=== PATIENT | male | born 1965 | race Caucasian/White ===

== ENCOUNTER 2020-01-07 10:33 | Inpatient (IN) | payer OTHER ==
--- NOTE | 2020-01-07 10:59 | EDM.PDOC ---
ED HPI GENERAL MEDICAL PROBLEM - General Chief Complaint: Fever Stated Complaint: FEVER, CANCER PATIENT Time Seen by Provider: 01/07/20 11:00 Source of Information: Reports: Patient, Family History Limitations: Reports: No Limitations - History of Present Illness INITIAL COMMENTS - FREE TEXT/NARRATIVE: pt has been very lethargic for the past 24 hours. He has had a fever on and off. He was incontinent of urine during the nite which is new for him. He has a known history of agressive prostate CA. He has not had recent UTIs. Onset: Today, Other (pt has been lethhargic for the past 48 hours. ) Duration: Hour(s): Location: Reports: Generalized, Other ( urine incontinence and red inflamed left leg. ) Associated Symptoms: Reports: Diaphoresis, Fever/Chills, Shortness of Breath, Weakness Bilateral Knee Pain Score (Numeric/FACES): 3 - Related Data Allergies Allergy/AdvReac Type Severity Reaction Status Date / Time No Known Allergies Allergy Verified 01/07/20 11:10 Home Meds: Home Meds Ibuprofen 400 mg PO Q6HR 01/07/20 [History] Lactobacillus Rhamnosus GG [Culturelle] 1 cap PO BID #60 cap 01/09/20 [Rx] cephALEXin [Cephalexin] 500 mg PO Q8H #21 tablet 01/09/20 [Rx] ED ROS ENT - Review of Systems Review Of Systems: See Below Constitutional: Reports: Fever, Chills, Malaise HEENT: Reports: No Symptoms Respiratory: Reports: Shortness of Breath, Other (pt feels slightly sob. ) Cardiovascular: Reports: No Symptoms Endocrine: Reports: No Symptoms GI/Abdominal: Reports: No Symptoms : Reports: No Symptoms Musculoskeletal: Reports: No Symptoms Skin: Reports: Other (left leg is very red and hot. ) Neurological: Reports: No Symptoms Psychiatric: Reports: Anxiety ED EXAM, ENT - Physical Exam Exam: See Below Text/Narrative:: pt arrived with a history of being very lethargic for the past 24 hours. He has a history of prostate CA--agressive. He has had a fever. He has a red hot left leg. Exam Limited By: No Limitations General Appearance: Alert, Anxious, Mild Distress Ears: Normal TMs Nose: Normal Inspection Mouth/Throat: Normal Inspection Head: Atraumatic Neck: Normal Inspection Respiratory/Chest: Other (pt has slightly low o2 sats. ) Cardiovascular: Regular Rate, Rhythm GI/Abdominal: Soft, Non-Tender (Male) Exam: Deferred Rectal (Males) Exam: Deferred Back: Normal Inspection Extremities: Other (left leg is red and hot appearing. Alot of the redness in the anterior portion of the leg. ) Neurological: Alert, Oriented, Normal Cognition Psychiatric: Anxious Course - Vital Signs Last Recorded V/S: Last Vital Signs Temp 36.6 C 01/09/20 11:00 Pulse 91 01/09/20 11:00 Resp 18 01/09/20 11:00 BP 140/82 01/09/20 11:00 Pulse Ox 94 L 01/09/20 11:00 - Orders/Labs/Meds Labs: Laboratory Tests 01/07/20 01/07/20 01/07/20 Range/Units 11:07 11:07 11:07 WBC 15.0 H (4.5-11.0) K/uL RBC 5.90 (4.30-5.90) M/uL Hgb 17.2 H (12.0-15.0) g/dL Hct 53.7 (40.0-54.0) % MCV 91 (80-98) fL MCH 29 (27-31) pg MCHC 32 (32-36) % Plt Count 175 (150-400) K/uL Neut % (Auto) 84 H (36-66) % Lymph % (Auto) 6 L (24-44) % Wright % (Auto) 10 H (2-6) % Eos % (Auto) 0 L (2-4) % Baso % (Auto) 0 (0-1) % D-Dimer, Quantitative (0.0-400.0) ng/mL Puncture Site ABG pH (7.350-7.450) ABG pCO2 (35.0-42.0) mmHg ABG pO2 (75.0-100.0) mmHg ABG HCO3 (22.0-26.0) mmol/L ABG Total CO2 (23.0-27.0) mmol/L ABG O2 Saturation (95.0-98.0) % ABG O2 Content (15.0-23.0) %vol ABG Base Excess mm/L ABG Hemoglobin (13.5-18.0) g/dL ABG Oxyhemoglobin % ABG Carboxyhemoglobin (0.0-1.6) % ABG Methemoglobin % Marcus Test O2 Delivery Device Oxygen Flow Rate L Sodium 138 L (140-148) mmol/L Potassium 3.5 L (3.6-5.2) mmol/L Chloride 102 (100-108) mmol/L Carbon Dioxide 29 (21-32) mmol/L Anion Gap 10.5 (5.0-14.0) mmol/L BUN 22 H (7-18) mg/dL Creatinine 1.0 (0.8-1.3) mg/dL Est Cr Clr Drug Dosing 84.45 mL/min Estimated GFR (MDRD) > 60 (>60) Glucose 99 (74-106) mg/dL Lactic Acid 0.8 (0.4-2.0) mmol/L Calcium 8.8 (8.5-10.1) mg/dL Total Bilirubin 0.9 (0.2-1.0) mg/dL AST 22 (15-37) U/L ALT 44 (12-78) U/L Alkaline Phosphatase 46 (46-116) U/L C-Reactive Protein (0.0-0.3) mg/dL Total Protein 7.3 (6.4-8.2) g/dL Albumin 3.6 (3.4-5.0) g/dL Globulin 3.7 H (2.3-3.5) g/dL Albumin/Globulin Ratio 1.0 L (1.2-2.2) Urine Color (YELLOW) Urine Appearance (CLEAR) Urine pH (5.0-8.0) Ur Specific Hawkins (1.008-1.030) Urine Protein (NEGATIVE) mg/dL Urine Glucose (UA) (NEGATIVE) mg/dL Urine Ketones (NEGATIVE) mg/dL Urine Occult Blood (NEGATIVE) Urine Nitrite (NEGATIVE) Urine Bilirubin (NEGATIVE) Urine Urobilinogen (0.2-1.0) EU/dL Ur Leukocyte Esterase (NEGATIVE) Urine RBC (0-5) Urine WBC (0-5) Ur Epithelial Cells Amorphous Sediment Urine Bacteria Urine Mucus 01/07/20 01/07/20 01/07/20 Range/Units 11:20 12:00 12:06 WBC (4.5-11.0) K/uL RBC (4.30-5.90) M/uL Hgb (12.0-15.0) g/dL Hct (40.0-54.0) % MCV (80-98) fL MCH (27-31) pg MCHC (32-36) % Plt Count (150-400) K/uL Neut % (Auto) (36-66) % Lymph % (Auto) (24-44) % Wright % (Auto) (2-6) % Eos % (Auto) (2-4) % Baso % (Auto) (0-1) % D-Dimer, Quantitative 153 (0.0-400.0) ng/mL Puncture Site Lt brachial ABG pH 7.398 (7.350-7.450) ABG pCO2 46.8 H (35.0-42.0) mmHg ABG pO2 63.1 L (75.0-100.0) mmHg ABG HCO3 28.2 H (22.0-26.0) mmol/L ABG Total CO2 23.9 (23.0-27.0) mmol/L ABG O2 Saturation 91.5 L (95.0-98.0) % ABG O2 Content 21.1 (15.0-23.0) %vol ABG Base Excess 3.0 mm/L ABG Hemoglobin 17.1 (13.5-18.0) g/dL ABG Oxyhemoglobin 87.6 % ABG Carboxyhemoglobin 3.5 H (0.0-1.6) % ABG Methemoglobin 0.8 % Marcus Test Pass O2 Delivery Device Room air Oxygen Flow Rate 2.0 L Sodium (140-148) mmol/L Potassium (3.6-5.2) mmol/L Chloride (100-108) mmol/L Carbon Dioxide (21-32) mmol/L Anion Gap (5.0-14.0) mmol/L BUN (7-18) mg/dL Creatinine (0.8-1.3) mg/dL Est Cr Clr Drug Dosing mL/min Estimated GFR (MDRD) (>60) Glucose (74-106) mg/dL Lactic Acid (0.4-2.0) mmol/L Calcium (8.5-10.1) mg/dL Total Bilirubin (0.2-1.0) mg/dL AST (15-37) U/L ALT (12-78) U/L Alkaline Phosphatase (46-116) U/L C-Reactive Protein (0.0-0.3) mg/dL Total Protein (6.4-8.2) g/dL Albumin (3.4-5.0) g/dL Globulin (2.3-3.5) g/dL Albumin/Globulin Ratio (1.2-2.2) Urine Color Yellow (YELLOW) Urine Appearance Clear (CLEAR) Urine pH 5.5 (5.0-8.0) Ur Specific Hawkins >= 1.030 (1.008-1.030) Urine Protein 30 H (NEGATIVE) mg/dL Urine Glucose (UA) Negative (NEGATIVE) mg/dL Urine Ketones Negative (NEGATIVE) mg/dL Urine Occult Blood Small H (NEGATIVE) Urine Nitrite Negative (NEGATIVE) Urine Bilirubin Small H (NEGATIVE) Urine Urobilinogen 0.2 (0.2-1.0) EU/dL Ur Leukocyte Esterase Negative (NEGATIVE) Urine RBC 0-5 (0-5) Urine WBC 5-10 H (0-5) Ur Epithelial Cells Rare Amorphous Sediment Few Urine Bacteria Rare Urine Mucus Moderate 06/22/20 Range/Units 13:01 WBC (4.5-11.0) K/uL RBC (4.30-5.90) M/uL Hgb (12.0-15.0) g/dL Hct (40.0-54.0) % MCV (80-98) fL MCH (27-31) pg MCHC (32-36) % Plt Count (150-400) K/uL Neut % (Auto) (36-66) % Lymph % (Auto) (24-44) % Wright % (Auto) (2-6) % Eos % (Auto) (2-4) % Baso % (Auto) (0-1) % D-Dimer, Quantitative (0.0-400.0) ng/mL Puncture Site ABG pH (7.350-7.450) ABG pCO2 (35.0-42.0) mmHg ABG pO2 (75.0-100.0) mmHg ABG HCO3 (22.0-26.0) mmol/L ABG Total CO2 (23.0-27.0) mmol/L ABG O2 Saturation (95.0-98.0) % ABG O2 Content (15.0-23.0) %vol ABG Base Excess mm/L ABG Hemoglobin (13.5-18.0) g/dL ABG Oxyhemoglobin % ABG Carboxyhemoglobin (0.0-1.6) % ABG Methemoglobin % Marcus Test O2 Delivery Device Oxygen Flow Rate L Sodium (140-148) mmol/L Potassium (3.6-5.2) mmol/L Chloride (100-108) mmol/L Carbon Dioxide (21-32) mmol/L Anion Gap (5.0-14.0) mmol/L BUN (7-18) mg/dL Creatinine (0.8-1.3) mg/dL Est Cr Clr Drug Dosing mL/min Estimated GFR (MDRD) (>60) Glucose (74-106) mg/dL Lactic Acid (0.4-2.0) mmol/L Calcium (8.5-10.1) mg/dL Total Bilirubin (0.2-1.0) mg/dL AST (15-37) U/L ALT (12-78) U/L Alkaline Phosphatase (46-116) U/L C-Reactive Protein 13.03 H (0.0-0.3) mg/dL Total Protein (6.4-8.2) g/dL Albumin (3.4-5.0) g/dL Globulin (2.3-3.5) g/dL Albumin/Globulin Ratio (1.2-2.2) Urine Color (YELLOW) Urine Appearance (CLEAR) Urine pH (5.0-8.0) Ur Specific Hawkins (1.008-1.030) Urine Protein (NEGATIVE) mg/dL Urine Glucose (UA) (NEGATIVE) mg/dL Urine Ketones (NEGATIVE) mg/dL Urine Occult Blood (NEGATIVE) Urine Nitrite (NEGATIVE) Urine Bilirubin (NEGATIVE) Urine Urobilinogen (0.2-1.0) EU/dL Ur Leukocyte Esterase (NEGATIVE) Urine RBC (0-5) Urine WBC (0-5) Ur Epithelial Cells Amorphous Sediment Urine Bacteria Urine Mucus Meds: Medications Discontinued Medications Generic Name Dose Route Start Last Admin Trade Name Freq PRN Reason Stop Dose Admin Acetaminophen 650 mg 01/07/20 14:46 Tylenol PO Q4H PRN Pain (Mild 1-3)/fever Albuterol 2.5 mg 01/07/20 16:02 Proventil Neb Soln NEB Q4H PRN Dyspnea Albuterol/Ipratropium 3 ml 01/07/20 16:00 01/07/20 22:25 Duoneb 3.0-0.5 Mg/3 Ml NEB Not Given QIDRT DELORES Enoxaparin Sodium 40 mg 01/07/20 16:00 01/08/20 15:38 Lovenox SUBCUT Not Given DAILY@1600 DELORES Haloperidol 1 mg 01/07/20 16:02 Haldol PO Q2H PRN Agitation Sodium Chloride 1,000 mls @ 999 mls/hr 01/07/20 11:30 01/07/20 11:25 Normal Saline IV 999 mls/hr ASDIRECTED DELORES Administration Sodium Chloride 1,000 mls @ 999 mls/hr 01/07/20 12:45 Normal Saline IV ASDIRECTED DELORES Piperacillin/Tazobactam/ 50 mls @ 100 mls/hr 01/07/20 14:00 01/07/20 15:07 Dextrose 3.375 gm/ Premix IV 100 mls/hr Q6H DELORES Administration Vancomycin HCl 2 gm/ Sodium 500 mls @ 250 mls/hr 01/07/20 15:00 01/07/20 16:18 Chloride IV 01/07/20 19:00 250 mls/hr Q12H DELORES Administration Sodium Chloride 1,000 mls @ 125 mls/hr 01/07/20 14:46 01/08/20 02:22 Normal Saline IV 125 mls/hr ASDIRECTED DELORES Administration Piperacillin/Tazobactam/ 50 mls @ 100 mls/hr 01/07/20 21:00 01/09/20 08:32 Dextrose 3.375 gm/ Premix IV 100 mls/hr Q6H DELORES Administration Vancomycin HCl 2 gm/ Sodium 500 mls @ 250 mls/hr 01/08/20 04:00 01/09/20 05:23 Chloride IV 250 mls/hr Q12H DELORES Administration Melatonin 9 mg 01/07/20 21:00 Melatonin PO BEDTIME DELORES Nicotine 14 mg 01/07/20 13:30 01/07/20 22:25 Habitrol TRDERM 01/07/20 13:31 Not Given ONETIME ONE Nicotine 21 mg 01/07/20 15:30 01/09/20 08:31 Habitrol TRDERM 21 mg DAILY DELORES Administration Nicotine Polacrilex 2 mg 01/07/20 14:33 01/09/20 06:25 Nicorelief CHEW 2 mg Q1H PRN Administration Other Ondansetron HCl 4 mg 01/07/20 14:46 Zofran IV Q4H PRN Nausea/Vomiting Polyethylene Glycol 17 gm 01/07/20 14:46 Miralax PO DAILY PRN Constipation Potassium Chloride 40 meq 01/07/20 20:51 01/07/20 21:22 Klor-Con M20 PO 01/07/20 20:52 40 meq ONETIME ONE Administration Sodium Chloride 10 ml 01/07/20 11:00 01/07/20 11:08 Saline Flush FLUSH 10 ml ASDIRECTED PRN Administration Keep Vein Open Sodium Chloride 10 ml 01/07/20 14:46 Saline Flush FLUSH ASDIRECTED PRN Keep Vein Open Vancomycin HCl 1 gm 01/07/20 14:00 Vancomycin IV 01/07/20 16:00 .PHARMACY TO DOSE DELORES - Re-Assessments/Exams Free Text/Narrative Re-Assessment/Exam: 01/07/20 13:11 us of the left leg was neg for dvt. He has a clear urine but does look dehydrated. It appears he has a cellulitis of the left leg. His chest xray looks ok. Departure - Departure Time of Disposition: 11:00 Disposition: Admitted As Inpatient 66 Condition: Fair Clinical Impression: Cellulitis, Lung cancer - Discharge Information
[2020-01-07] MEDS ORDERED: Sodium Chloride 0.9% 10 ML Syringe FLUSH PRN ×2 (11:00→14:46)
[2020-01-07] MEDS ORDERED: Sodium Chloride 0.9% 1,000 ML IV SCH ×2 (11:30→12:45)
--- NOTE | 2020-01-07 12:28 | CR ---
CHEST: Portable 01/07/2020 at 11:51 AM CLINICAL HISTORY:SOB COMPARISON:2016 FINDINGS: Lung markings are exaggerated by patient's body habitus. The heart size, pulmonary vascularity and hilar structures are normal. No infiltrate effusion or pneumothorax is seen. IMPRESSION: No acute cardiopulmonary process.
[2020-01-07] MEDS ORDERED: cefTRIAXone 1 GM in Sodium Chloride 0.9% 50 ML IV ONE (13:19)
--- NOTE | 2020-01-07 13:21 | US ---
VL Duplex Lwr Ext Veins Ltd Lt INDICATION: red, hot FINDINGS: Ultrasound examination of the lower extremity using Doppler and compressive technique demonstrates that the common femoral, femoral, and popliteal veins are patent, and compressible throughout. The calf veins were segmentally visualized and are negative where seen. IMPRESSION: Negative for deep venous thrombosis.
[2020-01-07] MEDS ORDERED: Piperacillin/Tazobactam 3.375 GM in Sodium Chloride 0.9% 50 ML IV SCH (13:30)
[2020-01-07] MEDS ORDERED: Nicotine 14 MG/24 Hr Patch TRDERM ONE (13:30)
--- NOTE | 2020-01-07 13:32 | PCM.HP.2 ---
H&P History of Present Illness - General Date of Service: 01/07/20 Admit Problem/Dx: Admission Diagnosis/Problem Admission Diagnosis/Problem Cellulitis Source of Information: Patient, Family, Provider, RN Notes Reviewed History Limitations: Reports: No Limitations - History of Present Illness Initial Comments - Free Text/Narative: Mr. Gonzalez is a 54-year-old gentleman who was admitted through the emergency department with erythema and swelling of his left lower leg secondary to cellulitis. He has a known history of prostate cancer which is well managed with Lupron injections. He was feeling well until yesterday when he noted redness of his left lower leg. By this morning it has extended to involve most of the lower leg except the foot. He is felt feverish with chills and sweats. On evaluation in the emergency department white blood cell count is noted to be elevated. No other obvious source of infection has been identified on evaluation. - Related Data Allergies/Adverse Reactions: Allergies Allergy/AdvReac Type Severity Reaction Status Date / Time No Known Allergies Allergy Verified 01/07/20 11:10 Home Medications: Home Meds Ibuprofen 400 mg PO Q6HR 01/07/20 [History] Past Medical History HEENT History: Reports: None Cardiovascular History: Reports: None Respiratory History: Reports: None Genitourinary History: Reports: Other (See Below) Other Genitourinary History: prostrate cance Jun 2018 Neurological History: Reports: None Psychiatric History: Reports: None Endocrine/Metabolic History: Reports: None Hematologic History: Reports: None Immunologic History: Reports: None Oncologic (Cancer) History: Reports: Prostate Dermatologic History: Reports: None - Infectious Disease History Infectious Disease History: Reports: None - Past Surgical History GI Surgical History: Reports: Appendectomy Other Male Surgeries/Procedures: prostrate radiation Musculoskeletal Surgical History: Reports: Arthroscopic Knee Social & Family History - Tobacco Use Smoking Status *Q: Current Every Day Smoker Years of Tobacco use: 30 Packs/Tins Daily: 1.5 - Caffeine Use Caffeine Use: Reports: Coffee - Recreational Drug Use Recreational Drug Use: No H&P Review of Systems - Review of Systems: Review Of Systems: See Below General: Reports: Fever, Chills, Diaphoresis HEENT: Reports: No Symptoms Pulmonary: Reports: No Symptoms Cardiovascular: Reports: No Symptoms Gastrointestinal: Reports: No Symptoms Genitourinary: Reports: No Symptoms Musculoskeletal: Reports: No Symptoms Skin: Reports: Other (Erythema and tenderness left lower leg) Psychiatric: Reports: No Symptoms Neurological: Reports: No Symptoms Hematologic/Lymphatic: Reports: No Symptoms Immunologic: Reports: No Symptoms Exam - Exam Exam: See Below - Vital Signs Vital Signs: Last Vital Signs Temp 96.9 F 01/07/20 11:08 Pulse 95 01/07/20 11:42 Resp 18 01/07/20 11:33 BP 132/76 01/07/20 11:42 Pulse Ox 95 01/07/20 11:42 Weight: 343 lb 7.683 oz - Exam Quality Assessment: DVT Prophylaxis General: Alert, Oriented, Cooperative, Mild Distress HEENT: Conjunctiva Clear, Hearing Intact, Mucosa Moist & Musella, Normal Nasal Septum, Posterior Pharynx Clear, Pupils Equal Neck: Supple, Trachea Midline, +2 Carotid Pulse wo Bruit Lungs: Clear to Auscultation, Normal Respiratory Effort Cardiovascular: Regular Rate, Regular Rhythm, Normal S1, Normal S2 GI/Abdominal Exam: Soft, Non-Tender, No Organomegaly, No Distention Back Exam: Normal Inspection, Full Range of Motion Extremities: Other (Erythema left lower leg, excluding the foot) Skin: Other (As above) Neurological: Cranial Nerves Intact, Strength Equal Bilateral, Normal Speech, Normal Tone, Sensation Intact. No: Focal Deficit Neuro Extensive - Mental Status: Alert, Oriented x3, Normal Mood/Affect, Normal Cognition, Memory Intact - Patient Data Lab Results Last 24 hrs: Laboratory Results - last 24 hr 01/07/20 01/07/20 01/07/20 Range/Units 11:07 11:07 11:07 WBC 15.0 H (4.5-11.0) K/uL RBC 5.90 (4.30-5.90) M/uL Hgb 17.2 H (12.0-15.0) g/dL Hct 53.7 (40.0-54.0) % MCV 91 (80-98) fL MCH 29 (27-31) pg MCHC 32 (32-36) % Plt Count 175 (150-400) K/uL Neut % (Auto) 84 H (36-66) % Lymph % (Auto) 6 L (24-44) % Emmet % (Auto) 10 H (2-6) % Eos % (Auto) 0 L (2-4) % Baso % (Auto) 0 (0-1) % D-Dimer, Quantitative (0.0-400.0) ng/mL Puncture Site ABG pH (7.350-7.450) ABG pCO2 (35.0-42.0) mmHg ABG pO2 (75.0-100.0) mmHg ABG HCO3 (22.0-26.0) mmol/L ABG Total CO2 (23.0-27.0) mmol/L ABG O2 Saturation (95.0-98.0) % ABG O2 Content (15.0-23.0) %vol ABG Base Excess mm/L ABG Hemoglobin (13.5-18.0) g/dL ABG Oxyhemoglobin % ABG Carboxyhemoglobin (0.0-1.6) % ABG Methemoglobin % Marcus Test O2 Delivery Device Oxygen Flow Rate L Sodium 138 L (140-148) mmol/L Potassium 3.5 L (3.6-5.2) mmol/L Chloride 102 (100-108) mmol/L Carbon Dioxide 29 (21-32) mmol/L Anion Gap 10.5 (5.0-14.0) mmol/L BUN 22 H (7-18) mg/dL Creatinine 1.0 (0.8-1.3) mg/dL Est Cr Clr Drug Dosing 84.45 mL/min Estimated GFR (MDRD) > 60 (>60) Glucose 99 (74-106) mg/dL Lactic Acid 0.8 (0.4-2.0) mmol/L Calcium 8.8 (8.5-10.1) mg/dL Total Bilirubin 0.9 (0.2-1.0) mg/dL AST 22 (15-37) U/L ALT 44 (12-78) U/L Alkaline Phosphatase 46 (46-116) U/L C-Reactive Protein (0.0-0.3) mg/dL Total Protein 7.3 (6.4-8.2) g/dL Albumin 3.6 (3.4-5.0) g/dL Globulin 3.7 H (2.3-3.5) g/dL Albumin/Globulin Ratio 1.0 L (1.2-2.2) Urine Color (YELLOW) Urine Appearance (CLEAR) Urine pH (5.0-8.0) Ur Specific [place] (1.008-1.030) Urine Protein (NEGATIVE) mg/dL Urine Glucose (UA) (NEGATIVE) mg/dL Urine Ketones (NEGATIVE) mg/dL Urine Occult Blood (NEGATIVE) Urine Nitrite (NEGATIVE) Urine Bilirubin (NEGATIVE) Urine Urobilinogen (0.2-1.0) EU/dL Ur Leukocyte Esterase (NEGATIVE) Urine RBC (0-5) Urine WBC (0-5) Ur Epithelial Cells Amorphous Sediment Urine Bacteria Urine Mucus 01/07/20 01/07/20 01/07/20 Range/Units 11:20 12:00 12:06 WBC (4.5-11.0) K/uL RBC (4.30-5.90) M/uL Hgb (12.0-15.0) g/dL Hct (40.0-54.0) % MCV (80-98) fL MCH (27-31) pg MCHC (32-36) % Plt Count (150-400) K/uL Neut % (Auto) (36-66) % Lymph % (Auto) (24-44) % Emmet % (Auto) (2-6) % Eos % (Auto) (2-4) % Baso % (Auto) (0-1) % D-Dimer, Quantitative 153 (0.0-400.0) ng/mL Puncture Site Lt brachial ABG pH 7.398 (7.350-7.450) ABG pCO2 46.8 H (35.0-42.0) mmHg ABG pO2 63.1 L (75.0-100.0) mmHg ABG HCO3 28.2 H (22.0-26.0) mmol/L ABG Total CO2 23.9 (23.0-27.0) mmol/L ABG O2 Saturation 91.5 L (95.0-98.0) % ABG O2 Content 21.1 (15.0-23.0) %vol ABG Base Excess 3.0 mm/L ABG Hemoglobin 17.1 (13.5-18.0) g/dL ABG Oxyhemoglobin 87.6 % ABG Carboxyhemoglobin 3.5 H (0.0-1.6) % ABG Methemoglobin 0.8 % Marcus Test Pass O2 Delivery Device Room air Oxygen Flow Rate 2.0 L Sodium (140-148) mmol/L Potassium (3.6-5.2) mmol/L Chloride (100-108) mmol/L Carbon Dioxide (21-32) mmol/L Anion Gap (5.0-14.0) mmol/L BUN (7-18) mg/dL Creatinine (0.8-1.3) mg/dL Est Cr Clr Drug Dosing mL/min Estimated GFR (MDRD) (>60) Glucose (74-106) mg/dL Lactic Acid (0.4-2.0) mmol/L Calcium (8.5-10.1) mg/dL Total Bilirubin (0.2-1.0) mg/dL AST (15-37) U/L ALT (12-78) U/L Alkaline Phosphatase (46-116) U/L C-Reactive Protein (0.0-0.3) mg/dL Total Protein (6.4-8.2) g/dL Albumin (3.4-5.0) g/dL Globulin (2.3-3.5) g/dL Albumin/Globulin Ratio (1.2-2.2) Urine Color Yellow (YELLOW) Urine Appearance Clear (CLEAR) Urine pH 5.5 (5.0-8.0) Ur Specific [place] >= 1.030 (1.008-1.030) Urine Protein 30 H (NEGATIVE) mg/dL Urine Glucose (UA) Negative (NEGATIVE) mg/dL Urine Ketones Negative (NEGATIVE) mg/dL Urine Occult Blood Small H (NEGATIVE) Urine Nitrite Negative (NEGATIVE) Urine Bilirubin Small H (NEGATIVE) Urine Urobilinogen 0.2 (0.2-1.0) EU/dL Ur Leukocyte Esterase Negative (NEGATIVE) Urine RBC 0-5 (0-5) Urine WBC 5-10 H (0-5) Ur Epithelial Cells Rare Amorphous Sediment Few Urine Bacteria Rare Urine Mucus Moderate 06/22/20 Range/Units 13:01 WBC (4.5-11.0) K/uL RBC (4.30-5.90) M/uL Hgb (12.0-15.0) g/dL Hct (40.0-54.0) % MCV (80-98) fL MCH (27-31) pg MCHC (32-36) % Plt Count (150-400) K/uL Neut % (Auto) (36-66) % Lymph % (Auto) (24-44) % Emmet % (Auto) (2-6) % Eos % (Auto) (2-4) % Baso % (Auto) (0-1) % D-Dimer, Quantitative (0.0-400.0) ng/mL Puncture Site ABG pH (7.350-7.450) ABG pCO2 (35.0-42.0) mmHg ABG pO2 (75.0-100.0) mmHg ABG HCO3 (22.0-26.0) mmol/L ABG Total CO2 (23.0-27.0) mmol/L ABG O2 Saturation (95.0-98.0) % ABG O2 Content (15.0-23.0) %vol ABG Base Excess mm/L ABG Hemoglobin (13.5-18.0) g/dL ABG Oxyhemoglobin % ABG Carboxyhemoglobin (0.0-1.6) % ABG Methemoglobin % Marcus Test O2 Delivery Device Oxygen Flow Rate L Sodium (140-148) mmol/L Potassium (3.6-5.2) mmol/L Chloride (100-108) mmol/L Carbon Dioxide (21-32) mmol/L Anion Gap (5.0-14.0) mmol/L BUN (7-18) mg/dL Creatinine (0.8-1.3) mg/dL Est Cr Clr Drug Dosing mL/min Estimated GFR (MDRD) (>60) Glucose (74-106) mg/dL Lactic Acid (0.4-2.0) mmol/L Calcium (8.5-10.1) mg/dL Total Bilirubin (0.2-1.0) mg/dL AST (15-37) U/L ALT (12-78) U/L Alkaline Phosphatase (46-116) U/L C-Reactive Protein 13.03 H (0.0-0.3) mg/dL Total Protein (6.4-8.2) g/dL Albumin (3.4-5.0) g/dL Globulin (2.3-3.5) g/dL Albumin/Globulin Ratio (1.2-2.2) Urine Color (YELLOW) Urine Appearance (CLEAR) Urine pH (5.0-8.0) Ur Specific [place] (1.008-1.030) Urine Protein (NEGATIVE) mg/dL Urine Glucose (UA) (NEGATIVE) mg/dL Urine Ketones (NEGATIVE) mg/dL Urine Occult Blood (NEGATIVE) Urine Nitrite (NEGATIVE) Urine Bilirubin (NEGATIVE) Urine Urobilinogen (0.2-1.0) EU/dL Ur Leukocyte Esterase (NEGATIVE) Urine RBC (0-5) Urine WBC (0-5) Ur Epithelial Cells Amorphous Sediment Urine Bacteria Urine Mucus Result Diagrams: 01/07/20 11:07 01/07/20 11:07 Sepsis Event Note - Evaluation Sepsis Screening Result: Possible Sepsis Risk - Focused Exam Vital Signs: Vital Signs Temp Pulse Resp BP Pulse Ox 01/07/20 11:42 95 132/76 95 01/07/20 11:33 91 18 139/76 92 L 01/07/20 11:22 71 16 93/45 L 85 L 01/07/20 11:08 96.9 F 106 H 28 H 126/83 91 L 01/07/20 10:44 96.9 F 106 H 28 H 126/83 91 L Date Exam was Performed: 01/07/20 Time Exam was Performed: 14:34 *Q Meaningful Use (ADM) - VTE Risk Assess *Q Each Risk Factor Represents 1 Point: Age 41 - 59 years, Swollen Legs, Current, Obesity ( BMI > 25 kg/m2) Total Score 1 Point Risk Factors: 3 Each Risk Factor Represents 2 Points: None Total Score 2 Point Risk Factors: 0 Each Risk Factor Represents 3 Points: None Total Score 3 Point Risk Factors: 0 Each Risk Factor Represents 5 Points: None Total Score 5 Point Risk Factors: 0 Venous Thromboembolism Risk Factor Score *Q: 3 Problem List Initiated/Reviewed/Updated: Yes Orders Last 24hrs: Active Orders 24 hr Category Date Time Status Patient Status Manage Transfer [TRANSFER] Routine ADT 01/07/20 13:28 Ordered CULTURE BLOOD [BC] Urgent Lab 01/07/20 11:07 Received CULTURE BLOOD [BC] Urgent Lab 01/07/20 11:20 Received Piperacillin/Tazobactam [Zosyn] 3.375 gm Med 01/07/20 13:30 Ordered Sodium Chloride 0.9% [Normal Saline] 50 ml IV Q6H Sodium Chloride 0.9% [Normal Saline] 1,000 ml Med 01/07/20 12:45 Active IV ASDIRECTED Sodium Chloride 0.9% [Saline Flush] Med 01/07/20 11:00 Active 10 ml FLUSH ASDIRECTED PRN Vancomycin Med 01/07/20 14:00 Ordered 1 gm IV .PHARMACY TO DOSE Blood Culture x2 Reflex Set [OM.PC] Urgent Oth 01/07/20 10:59 Ordered Saline Lock Insert [OM.PC] Routine Oth 01/07/20 11:00 Ordered Resuscitation Status Routine Resus Stat 01/07/20 13:29 Ordered Medication Orders Sodium Chloride (Normal Saline) 1,000 mls @ 999 mls/hr IV ASDIRECTED DELORES Piperacillin Sod/Tazobactam (Sod 3.375 gm/ Sodium Chloride) 50 mls @ 100 mls/hr IV Q6H DELORES Sodium Chloride (Saline Flush) 10 ml FLUSH ASDIRECTED PRN PRN Reason: Keep Vein Open Last Admin: 01/07/20 11:08 Dose: 10 ml Documented by: PREILOR Vancomycin HCl (Vancomycin) 1 gm IV .PHARMACY TO DOSE DELORES Assessment/Plan Comment:: ASSESSMENT AND PLAN CELLULITIS LEFT LOWER LEG-onset over the last 24 hours, progressed since last night. -Blood cultures pending -IV vancomycin and Zosyn pending culture results -IV fluids for hydration PROSTATE [id number] on current therapy with Lupron NICOTINE DEPENDENCE -Nicotine patch -Nicotine gum MAINTENANCE ISSUES -DVT prophylaxis; Lovenox 40 mg subcu daily -GI prophylaxis; not indicated -Chacon catheter; not indicated -Nutrition; regular diet -Nicotine dependence; as above CODE STATUS-full code ADMISSION STATUS-patient will be admitted to inpatient status, expect at least a 2 night hospital stay for evaluation and management of problems as outlined above. At the time of this admission I do not reasonably expected evaluation and management of this problem will require more than a 96 hour hospital stay. DISPOSITION-anticipate discharge to home after the hospital stay. PRIMARY CARE PROVIDER-Celso Chapin - Mortality Measure Prognosis:: Good
[2020-01-07] MEDS ORDERED: Vancomycin 1 GM SDV IV SCH (14:00)
[2020-01-07] MEDS ORDERED: Piperacillin/Tazobactam/Dext 3.375 GM in Premix Bag 1 BAG IV SCH (14:00)
[2020-01-07] MEDS ORDERED: Acetaminophen 325 MG Tab PO PRN (14:46)
[2020-01-07] MEDS ORDERED: Ondansetron 4 MG/2 ML SDV IV PRN (14:46)
[2020-01-07] MEDS ORDERED: Polyethylene Glycol 3350 Powder 17 GM Packet PO PRN (14:46)
[2020-01-07] MEDS ORDERED: Vancomycin 2 GM in Sodium Chloride 0.9% 500 ML IV SCH (15:00)
[2020-01-07] MEDS: Sodium Chloride 0.9% 1,000 ML IV SCH (15:05)
[2020-01-07] MEDS: Nicotine 21 MG/24 Hr Patch TRDERM SCH (15:33)
[2020-01-07] MEDS ORDERED: Albuterol/Ipratropium 3.0-0.5 MG/3 ML Neb Soln NEB SCH (16:00)
[2020-01-07] MEDS ORDERED: Haloperidol 1 MG Tab PO PRN (16:02)
[2020-01-07] MEDS ORDERED: Albuterol 0.083% 2.5 MG/3 ML Neb Soln NEB PRN (16:02)
[2020-01-07] MEDS: Enoxaparin 40 MG/0.4 ML Syringe SUBCUT SCH (16:19)
[2020-01-07] MEDS: Nicotine Polacrilex 2 MG Gum CHEW PRN (17:09)
[2020-01-07] MEDS ORDERED: Potassium Chloride 20 MEQ Tab.ER PO ONE (20:51)
[2020-01-07] MEDS ORDERED: Melatonin 3 MG Tab PO SCH (21:00)
[2020-01-07] MEDS: Piperacillin/Tazobactam/Dext 3.375 GM in Premix Bag 1 BAG IV SCH (21:22)
[2020-01-08] MEDS: Sodium Chloride 0.9% 1,000 ML IV SCH (02:22)
[2020-01-08] MEDS: Piperacillin/Tazobactam/Dext 3.375 GM in Premix Bag 1 BAG IV SCH ×4 (02:25→20:28)
[2020-01-08] MEDS: Vancomycin 2 GM in Sodium Chloride 0.9% 500 ML IV SCH ×2 (03:28→15:56)
[2020-01-08] MEDS: Nicotine 21 MG/24 Hr Patch TRDERM SCH (08:03)
[2020-01-08] MEDS: Nicotine Polacrilex 2 MG Gum CHEW PRN ×2 (09:57→16:04)
--- NOTE | 2020-01-08 14:22 | PCM.PN ---
- General Info Date of Service: 01/08/20 Subjective Update: Mr. Gonzalez has been stable since admission with no significant temperature elevation. Vital signs have been stable and white blood cell count has normalized. Pain in the leg has resolved with much of the erythema. Functional Status: Reports: Tolerating Diet, Ambulating, Urinating - Review of Systems General: Reports: No Symptoms Pulmonary: Reports: No Symptoms Cardiovascular: Reports: No Symptoms Gastrointestinal: Reports: No Symptoms - Patient Data Vitals - Most Recent: Last Vital Signs Temp 97.3 F 01/08/20 11:00 Pulse 91 01/08/20 11:00 Resp 16 01/08/20 11:00 BP 139/80 01/08/20 11:00 Pulse Ox 92 L 01/08/20 11:00 Weight - Most Recent: 349 lb 3.2 oz I&O - Last 24 Hours: Intake & Output 01/07/20 01/08/20 01/08/20 22:59 06:59 14:59 Intake Total 3975 265 0442 Balance 0200 931 [id number] Lab Results Last 24 Hours: Laboratory Results - last 24 hr 01/08/20 01/08/20 Range/Units 05:00 05:00 WBC 10.2 (4.5-11.0) K/uL RBC 5.35 (4.30-5.90) M/uL Hgb 15.5 H (12.0-15.0) g/dL Hct 49.6 (40.0-54.0) % MCV 93 (80-98) fL MCH 29 (27-31) pg MCHC 31 L (32-36) % Plt Count 160 (150-400) K/uL Neut % (Auto) 79 H (36-66) % Lymph % (Auto) 6 L (24-44) % [place] % (Auto) 14 H (2-6) % Eos % (Auto) 1 L (2-4) % Baso % (Auto) 1 (0-1) % Sodium 141 (140-148) mmol/L Potassium 4.3 (3.6-5.2) mmol/L Chloride 107 (100-108) mmol/L Carbon Dioxide 27 (21-32) mmol/L Anion Gap 7.5 (5.0-14.0) mmol/L BUN 15 (7-18) mg/dL Creatinine 0.8 (0.8-1.3) mg/dL Est Cr Clr Drug Dosing 105.56 mL/min Estimated GFR (MDRD) > 60 (>60) Glucose 91 (74-106) mg/dL Calcium 8.0 L (8.5-10.1) mg/dL Magnesium 1.9 (1.8-2.4) mg/dL Uriel Results Last 24 Hours: Microbiology 01/07/20 11:20 Aerobic Blood Culture - Preliminary Blood - Venous NO GROWTH AFTER 1 DAY Anaerobic Blood Culture - Preliminary NO GROWTH AFTER 1 DAY 01/07/20 11:07 Aerobic Blood Culture - Preliminary Blood - Venous - Iv Start Anaerobic Blood Culture - Preliminary NO GROWTH AFTER 1 DAY Med Orders - Current: Current Medications Acetaminophen (Tylenol) 650 mg PO Q4H PRN PRN Reason: Pain (Mild 1-3)/fever Enoxaparin Sodium (Lovenox) 40 mg SUBCUT DAILY@1600 [facility] Last Admin: 01/07/20 16:19 Dose: 40 mg Documented by: Piperacillin/Tazobactam/ (Dextrose 3.375 gm/ Premix) 50 mls @ 100 mls/hr IV Q6H [facility] Last Admin: 01/08/20 08:01 Dose: 100 mls/hr Documented by: Vancomycin HCl 2 gm/ Sodium (Chloride) 500 mls @ 250 mls/hr IV Q12H [facility] Last Admin: 01/08/20 03:28 Dose: 250 mls/hr Documented by: Nicotine (Habitrol) 21 mg TRDERM DAILY [facility] Last Admin: 01/08/20 08:03 Dose: 21 mg Documented by: Nicotine Polacrilex (Nicorelief) 2 mg CHEW Q1H PRN PRN Reason: Other Last Admin: 01/08/20 09:57 Dose: 2 mg Documented by: Ondansetron HCl (Zofran) 4 mg IV Q4H PRN PRN Reason: Nausea/Vomiting Polyethylene Glycol (Miralax) 17 gm PO DAILY PRN PRN Reason: Constipation Sodium Chloride (Saline Flush) 10 ml FLUSH ASDIRECTED PRN PRN Reason: Keep Vein Open Discontinued Medications Albuterol (Proventil Neb Soln) 2.5 mg NEB Q4H PRN PRN Reason: Dyspnea Albuterol/Ipratropium (Duoneb 3.0-0.5 Mg/3 Ml) 3 ml NEB QIDRT [facility] Last Admin: 01/07/20 22:25 Dose: Not Given Documented by: Haloperidol (Haldol) 1 mg PO Q2H PRN PRN Reason: Agitation Sodium Chloride (Normal Saline) 1,000 mls @ 999 mls/hr IV ASDIRECTED [facility] Last Admin: 01/07/20 11:25 Dose: 999 mls/hr Documented by: Sodium Chloride (Normal Saline) 1,000 mls @ 999 mls/hr IV ASDIRECTED [facility] Piperacillin/Tazobactam/ (Dextrose 3.375 gm/ Premix) 50 mls @ 100 mls/hr IV Q6H [facility] Last Admin: 01/07/20 15:07 Dose: 100 mls/hr Documented by: Vancomycin HCl 2 gm/ Sodium (Chloride) 500 mls @ 250 mls/hr IV Q12H [facility] Stop: 01/07/20 19:00 Last Admin: 01/07/20 16:18 Dose: 250 mls/hr Documented by: Sodium Chloride (Normal Saline) 1,000 mls @ 125 mls/hr IV ASDIRECTED [facility] Last Admin: 01/08/20 02:22 Dose: 125 mls/hr Documented by: Melatonin (Melatonin) 9 mg PO BEDTIME [facility] Nicotine (Habitrol) 14 mg TRDERM ONETIME ONE Stop: 01/07/20 13:31 Last Admin: 01/07/20 22:25 Dose: Not Given Documented by: Potassium Chloride (Klor-Con M20) 40 meq PO ONETIME ONE Stop: 01/07/20 20:52 Last Admin: 01/07/20 21:22 Dose: 40 meq Documented by: Sodium Chloride (Saline Flush) 10 ml FLUSH ASDIRECTED PRN PRN Reason: Keep Vein Open Last Admin: 01/07/20 11:08 Dose: 10 ml Documented by: Vancomycin HCl (Vancomycin) 1 gm IV .PHARMACY TO DOSE [facility] Stop: 01/07/20 16:00 - Exam General: Alert, Oriented, Cooperative, No Acute Distress Lungs: Clear to Auscultation, Normal Respiratory Effort Cardiovascular: Regular Rate, Regular Rhythm, No Murmurs GI/Abdominal Exam: Soft, Non-Tender, No Organomegaly, No Distention Skin: Other (Erythema and tenderness left lower leg have almost resolved) Sepsis Event Note - Evaluation Sepsis Screening Result: Sepsis Risk - Focused Exam Vital Signs: Vital Signs Temp Pulse Resp BP Pulse Ox 01/08/20 11:00 97.3 F 91 16 139/80 92 L 01/08/20 07:00 93 L 01/08/20 06:54 96.2 F L 91 16 135/81 96 01/08/20 03:00 98.1 F 88 18 128/76 94 L Date Exam was Performed: 01/08/20 Time Exam was Performed: 14:20 - Problem List Review Problem List Initiated/Reviewed/Updated: Yes - My Orders Last 24 Hours: My Active Orders 01/07/20 14:33 Nicotine Polacrilex [Nicorelief] 2 mg CHEW Q1H PRN 01/07/20 14:46 Acetaminophen [Tylenol] 650 mg PO Q4H PRN Ondansetron [Zofran] 4 mg IV Q4H PRN Sodium Chloride 0.9% [Saline Flush] 10 ml FLUSH ASDIRECTED PRN polyethylene glycoL 3350 [MiraLAX] 17 gm PO DAILY PRN 01/07/20 14:46 Patient Status [ADT] Routine Ambulate [RC] QID Height and Weight [RC] 0500 Intake and Output [RC] QSHIFT Notify Provider Vital Signs [RC] ASDIRECTED Oxygen Therapy [RC] PRN Peripheral IV Care [RC] . DIRECTED Up With Assistance [RC] ASDIRECTED Up to Chair [RC] QID VTE/DVT Education [RC] Per Unit Routine Vital Signs [RC] Q4H Peripheral IV Insertion Adult [OM.PC] Routine 01/07/20 15:30 Nicotine [Habitrol] 21 mg TRDERM DAILY 01/07/20 15:59 Resuscitation Status Routine 01/07/20 16:00 Enoxaparin [Lovenox] 40 mg SUBCUT DAILY@1600 01/07/20 16:02 RT Aerosol Therapy [RC] ASDIRECTED 01/07/20 21:00 Piperacillin/Tazobactam/Dext [Zosyn in Dextrose Iso-Osmotic 3.375 GM] 3.375 gm Premix Bag 1 bag IV Q6H 01/08/20 04:00 Vancomycin 2 gm Sodium Chloride 0.9% [Normal Saline] 500 ml IV Q12H 01/08/20 14:20 Convert IV to Saline Lock [OM.PC] Routine - Plan Plan:: ASSESSMENT AND PLAN CELLULITIS LEFT LOWER LEG-good improvement over the last 24 hours with IV antib iotic therapy -Blood cultures pending -IV vancomycin and Zosyn pending culture results -Saline lock IV PROSTATE [id number] on current therapy with Lupron NICOTINE DEPENDENCE -Nicotine patch -Nicotine gum MAINTENANCE ISSUES -DVT prophylaxis; Lovenox 40 mg subcu daily -GI prophylaxis; not indicated -Chacon catheter; not indicated -Nutrition; regular diet -Nicotine dependence; as above CODE STATUS-full code ADMISSION STATUS-patient will be admitted to inpatient status, expect at least a 2 night hospital stay for evaluation and management of problems as outlined above. At the time of this admission I do not reasonably expected evaluation and management of this problem will require more than a 96 hour hospital stay. DISPOSITION-anticipate discharge to home after the hospital stay. PRIMARY CARE PROVIDER-Celso Chapin
[2020-01-08] MEDS: Enoxaparin 40 MG/0.4 ML Syringe SUBCUT SCH (15:38)
[2020-01-09] MEDS: Piperacillin/Tazobactam/Dext 3.375 GM in Premix Bag 1 BAG IV SCH ×2 (04:32→08:32)
[2020-01-09] MEDS: Vancomycin 2 GM in Sodium Chloride 0.9% 500 ML IV SCH (05:23)
[2020-01-09] MEDS: Nicotine Polacrilex 2 MG Gum CHEW PRN (06:25)
[2020-01-09] MEDS: Nicotine 21 MG/24 Hr Patch TRDERM SCH (08:31)
--- NOTE | 2020-01-09 12:14 | PCM.DCSUM1 ---
Discharge Summary - Hospital Course Brief History: Mr. Gonzalez is a 54-year-old gentleman who was admitted through the emergency department with erythema and increased warmth of his left lower extremity, secondary to cellulitis. - Discharge Data Discharge Date: 01/09/20 Discharge Disposition: Home, Self-Care 01 Condition: Stable - Referral to Home Health Primary Care Physician: Celso Chapin NP - Discharge Diagnosis/Problem(s) (1) Cellulitis of left lower extremity SNOMED Code(s): 566448342 ICD Code: L03.116 - CELLULITIS OF LEFT LOWER LIMB Status: Acute Current Visit: Yes (2) History of prostate cancer SNOMED Code(s): 614299800 ICD Code: Z85.46 - PERSONAL HISTORY OF MALIGNANT NEOPLASM OF PROSTATE Status: Chronic Current Visit: No (3) Morbid obesity with BMI of 50.0-59.9, adult SNOMED Code(s): 766956816, [id number] ICD Code: E66.01 - MORBID (SEVERE) OBESITY DUE TO EXCESS CALORIES; Z68.43 - BODY MASS INDEX (BMI) 50.0-59.9, ADULT Status: Chronic Current Visit: No - Patient Summary/Data Hospital Course: Mr. Gonzalez is a 54-year-old gentleman who was admitted through the emergency department with erythema and swelling of his left lower leg secondary to cellulitis. He has a known history of prostate cancer which is well managed with Lupron injections. He was feeling well until yesterday when he noted redness of his left lower leg. By this morning it has extended to involve most of the lower leg except the foot. He is felt feverish with chills and sweats. On evaluation in the emergency department white blood cell count is noted to be elevated. No other obvious source of infection has been identified on evaluation. Cultures were obtained in the emergency department and he was given IV fluids for hydration. Broad-spectrum antibiotic therapy was initiated with vancomycin and Zosyn. There was good improvement in the first 24 hours and by the time of discharge cellulitis to have almost totally resolved. He remained afebrile and hemodynamically well through his hospital stay. He will be discharged home on additional 7 days of IV antibiotic therapy with cephalexin 500 mg every 8 hours. He will also be prescribed probiotic therapy twice daily over the next few months. Activity should be as tolerated and he will resume his usual diet. Follow-up appointment will be scheduled with his primary care provider within 1 week. - Patient Instructions Diet: Usual Diet as Tolerated Activity: As Tolerated - Discharge Plan *PRESCRIPTION DRUG MONITORING PROGRAM REVIEWED*: Not Applicable *COPY OF PRESCRIPTION DRUG MONITORING REPORT IN PATIENT ADAMA: Not Applicable Prescriptions/Med Rec: cephALEXin [Cephalexin] 500 mg PO Q8H #21 tablet Lactobacillus Rhamnosus GG [Culturelle] 1 cap PO BID #60 cap Home Medications: Home Meds Ibuprofen 400 mg PO Q6HR 01/07/20 [History] Lactobacillus Rhamnosus GG [Culturelle] 1 cap PO BID #60 cap 01/09/20 [Rx] cephALEXin [Cephalexin] 500 mg PO Q8H #21 tablet 01/09/20 [Rx] Forms: ED Department Discharge Referrals: Celso Chapin NP [Primary Care Provider] - 01/17/20 1:00 pm (Please arrive 15 minutes early to register for your appointment.) - Discharge Summary/Plan Comment DC Time >30 min.: No - Patient Data Vitals - Most Recent: Last Vital Signs Temp 97.8 F 01/09/20 11:00 Pulse 91 01/09/20 11:00 Resp 18 01/09/20 11:00 BP 140/82 01/09/20 11:00 Pulse Ox 94 L 01/09/20 11:00 Weight - Most Recent: 350 lb 3.2 oz I&O - Last 24 hours: Intake & Output 01/08/20 01/09/20 01/09/20 22:59 06:59 14:59 Intake Total 1784 450 600 Balance 1784 450 600 RASHID Results - Last 24 hrs: Microbiology 01/07/20 11:20 Aerobic Blood Culture - Preliminary Blood - Venous NO GROWTH AFTER 2 DAYS Anaerobic Blood Culture - Preliminary NO GROWTH AFTER 2 DAYS 01/07/20 11:07 Aerobic Blood Culture - Preliminary Blood - Venous - Iv Start Anaerobic Blood Culture - Preliminary NO GROWTH AFTER 2 DAYS Med Orders - Current: Current Medications Acetaminophen (Tylenol) 650 mg PO Q4H PRN PRN Reason: Pain (Mild 1-3)/fever Enoxaparin Sodium (Lovenox) 40 mg SUBCUT DAILY@1600 DELORES Last Admin: 01/08/20 15:38 Dose: Not Given Documented by: Piperacillin/Tazobactam/ (Dextrose 3.375 gm/ Premix) 50 mls @ 100 mls/hr IV Q6H [facility] Last Admin: 01/09/20 08:32 Dose: 100 mls/hr Documented by: Vancomycin HCl 2 gm/ Sodium (Chloride) 500 mls @ 250 mls/hr IV Q12H [facility] Last Admin: 01/09/20 05:23 Dose: 250 mls/hr Documented by: Nicotine (Habitrol) 21 mg TRDERM DAILY [facility] Last Admin: 01/09/20 08:31 Dose: 21 mg Documented by: Nicotine Polacrilex (Nicorelief) 2 mg CHEW Q1H PRN PRN Reason: Other Last Admin: 01/09/20 06:25 Dose: 2 mg Documented by: Ondansetron HCl (Zofran) 4 mg IV Q4H PRN PRN Reason: Nausea/Vomiting Polyethylene Glycol (Miralax) 17 gm PO DAILY PRN PRN Reason: Constipation Sodium Chloride (Saline Flush) 10 ml FLUSH ASDIRECTED PRN PRN Reason: Keep Vein Open Discontinued Medications Albuterol (Proventil Neb Soln) 2.5 mg NEB Q4H PRN PRN Reason: Dyspnea Albuterol/Ipratropium (Duoneb 3.0-0.5 Mg/3 Ml) 3 ml NEB QIDRT [facility] Last Admin: 01/07/20 22:25 Dose: Not Given Documented by: Haloperidol (Haldol) 1 mg PO Q2H PRN PRN Reason: Agitation Sodium Chloride (Normal Saline) 1,000 mls @ 999 mls/hr IV ASDIRECTED [facility] Last Admin: 01/07/20 11:25 Dose: 999 mls/hr Documented by: Sodium Chloride (Normal Saline) 1,000 mls @ 999 mls/hr IV ASDIRECTED [facility] Piperacillin/Tazobactam/ (Dextrose 3.375 gm/ Premix) 50 mls @ 100 mls/hr IV Q6H [facility] Last Admin: 01/07/20 15:07 Dose: 100 mls/hr Documented by: Vancomycin HCl 2 gm/ Sodium (Chloride) 500 mls @ 250 mls/hr IV Q12H [facility] Stop: 01/07/20 19:00 Last Admin: 01/07/20 16:18 Dose: 250 mls/hr Documented by: Sodium Chloride (Normal Saline) 1,000 mls @ 125 mls/hr IV ASDIRECTED [facility] Last Admin: 01/08/20 02:22 Dose: 125 mls/hr Documented by: Melatonin (Melatonin) 9 mg PO BEDTIME [facility]ORES Nicotine (Habitrol) 14 mg TRDERM ONETIME ONE Stop: 01/07/20 13:31 Last Admin: 01/07/20 22:25 Dose: Not Given Documented by: Potassium Chloride (Klor-Con M20) 40 meq PO ONETIME ONE Stop: 01/07/20 20:52 Last Admin: 01/07/20 21:22 Dose: 40 meq Documented by: Sodium Chloride (Saline Flush) 10 ml FLUSH ASDIRECTED PRN PRN Reason: Keep Vein Open Last Admin: 01/07/20 11:08 Dose: 10 ml Documented by: Vancomycin HCl (Vancomycin) 1 gm IV .PHARMACY TO DOSE DELORES Stop: 01/07/20 16:00 - Exam General: Reports: Alert, Oriented, Cooperative, No Acute Distress Lungs: Reports: Clear to Auscultation, Normal Respiratory Effort Cardiovascular: Reports: Regular Rate, Regular Rhythm, No Murmurs GI/Abdominal Exam: Soft, Non-Tender, No Organomegaly, No Distention Back Exam: Reports: Normal Inspection, Full Range of Motion Extremities: Other (Resolving erythema left lower leg)
== END 2020-01-09 13:01 | disposition home or self-care (01) | DRG 603 ==
LOC: JP.ED 10:33 → JP.MS 13:28
PROVIDERS: ADMIT Hospitalist; ATTEND Hospitalist
DX: L03.116 Cellulitis of left lower limb (principal); Z68.43 Body mass index [BMI] 50.0-59.9, adult; E66.01 Morbid (severe) obesity due to excess calories; C61 Malignant neoplasm of prostate
CPT/HCPCS: 36415; 36600; 71045; 71045-26; 80048; 80053; 81001; 82803; 83605; 83735; 85025; 85379; 86140; 87040; 87077; 87186; 93971-26-LT; 93971-LT; 94762; 96360; 99284-25; A9270-GY; J1650; J2543; J3370; J7030; J7040

== ENCOUNTER 2020-12-17 12:16 | Emergency (ER) | payer OTHER ==
[2020-12-17] MEDS ORDERED: Nicotine 21 MG/24 Hr Patch TRDERM ONE (12:39)
[2020-12-17] MEDS ORDERED: Aspirin 81 MG Tab.Chew PO ONE (13:04)
[2020-12-17] MEDS ORDERED: Diltiazem 180 MG Cap.CD PO ONE (13:08)
[2020-12-17] MEDS ORDERED: Hydrochlorothiazide 25 MG Tab PO ONE (13:12)
--- NOTE | 2020-12-17 13:14 | EDM.PDOC ---
ED HPI GENERAL MEDICAL PROBLEM - General Chief Complaint: Respiratory Problem Stated Complaint: LOW OXYGEN, SWELLING IN BOTH LEGS Time Seen by Provider: 12/17/20 12:25 Source of Information: Reports: Patient, Old Records History Limitations: Reports: No Limitations - History of Present Illness INITIAL COMMENTS - FREE TEXT/NARRATIVE: 55 yo male smoker with a past hx of prostate CA was sent over from the clinic today for low oxygen levels after he presented for leg swelling bilaterally. He is interested in quitting smoking. He apparently has been suspected of having sleep apnea and has loud snoring at night and falls asleep easily and often during the day. He is not on home oxygen and does not feel SOB. No recent fever or cough. He does note dyspnea on exertion. Has not been seen by his doctor in quite a while. He is not currently interested in a sleep study or CPAP. Onset: Gradual Duration: Week(s):, Chronic, Getting Worse Location: Reports: Chest ([place]), Lower Extremity, Left (swelling), Lower Extremity, Right (swelling) Quality: Reports: Other (no pain reported) Severity: Severe (apparent sleep apnea) Improves with: Reports: Other (being awake) Worsens with: Reports: Other (sleeping) Context: Reports: Other (See HPI) Associated Symptoms: Reports: Shortness of Breath (with exertion). Denies: Diaphoresis, Fever/Chills Treatments SAWYER CORK SLABS: Reports: Other (see below) (none) - Related Data Allergies Allergy/AdvReac Type Severity Reaction Status Date / Time No Known Allergies Allergy Verified 12/17/20 12:42 Home Meds: Home Meds Ibuprofen 400 mg PO Q6HR PRN 01/07/20 [History] Lisinopril/Hydrochlorothiazide [Lisinopril-Hctz 20-12.5 mg Tab] 1 each PO DAILY #30 tablet 12/17/20 [Rx] Nicotine [Nicotine Patch] 21 mg TD DAILY #14 patch 12/17/20 [Rx] Past Medical History HEENT History: Reports: None Cardiovascular History: Reports: SOB on Exertion Respiratory History: Reports: Sleep Apnea Genitourinary History: Reports: Other (See Below) Other Genitourinary History: prostrate cance Jun 2018 Neurological History: Reports: None Psychiatric History: Reports: None Endocrine/Metabolic History: Reports: None Hematologic History: Reports: None Immunologic History: Reports: None Oncologic (Cancer) History: Reports: Prostate Other Oncologic History: lupron injections Dermatologic History: Reports: None - Infectious Disease History Infectious Disease History: Reports: None - Past Surgical History GI Surgical History: Reports: Appendectomy Other Male Surgeries/Procedures: prostrate radiation Musculoskeletal Surgical History: Reports: Arthroscopic Knee Social & Family History - Family History Family Medical History: No Pertinent Family History - Tobacco Use Tobacco Use Status *Q: Current Every Day Tobacco User Years of Tobacco use: 30 Packs/Tins Daily: 1.5 - Caffeine Use Caffeine Use: Reports: Coffee - Recreational Drug Use Recreational Drug Use: No ED ROS GENERAL - Review of Systems Review Of Systems: See Below Constitutional: Reports: Fatigue. Denies: Fever, Chills HEENT: Reports: No Symptoms Respiratory: Reports: Shortness of Breath (mainly with exertion) Cardiovascular: Reports: Edema (of both legs) GI/Abdominal: Reports: No Symptoms : Reports: No Symptoms Musculoskeletal: Reports: No Symptoms Skin: Reports: Erythema (slight redness of both legs below the knees). Denies: Wound Neurological: Reports: Other (excesssive daytime somnolence ) Psychiatric: Reports: No Symptoms ED EXAM, GENERAL - Physical Exam Exam: See Below Exam Limited By: No Limitations General Appearance: Alert, WD/WN, No Apparent Distress, Obese Eye Exam: Bilateral Eye: Normal Inspection Ears: Normal External Exam, Normal Canal, Hearing Grossly Normal Ear Exam: Bilateral Ear: Auricle Normal, Canal Normal Nose: Normal Inspection, No Blood Throat/Mouth: Normal Inspection, Normal Lips, Normal Oropharynx, Normal Voice, No Airway Compromise Head: Atraumatic, Normocephalic Neck: Normal Inspection Respiratory/Chest: Decreased Breath Sounds, Wheezing (faint) Cardiovascular: Regular Rate, Rhythm, Tachycardia. No: No Edema GI/Abdominal: Normal Bowel Sounds, Soft, Non-Tender, No Distention, Other (obese) Back Exam: Normal Inspection. No: CVA Tenderness (R), CVA Tenderness (L) Extremities: Normal Inspection, Normal Range of Motion, Non-Tender, Pedal Edema (1+ pitting edema of both legs below the knees). No: No Pedal Edema, Increased Warmth Neurological: Alert, Oriented, CN II-XII Intact, Normal Cognition, No Motor/Sensory Deficits Psychiatric: Normal Affect, Normal Mood Skin Exam: Warm, Dry, Intact, Normal Color, No Rash Course - Vital Signs Last Recorded V/S: Last Vital Signs Temp 36.8 C 12/17/20 12:41 Pulse 17 L 12/17/20 13:22 Resp 17 12/17/20 13:22 BP 167/100 H 12/17/20 13:23 Pulse Ox 78 L 12/17/20 13:22 - Orders/Labs/Meds Orders: Active Orders 24 hr Category Date Time Status RT Aerosol Therapy [RC] ASDIRECTED Care 12/17/20 13:23 Active Sodium Chloride 0.9% [Normal Saline] 500 ml Med 12/17/20 13:31 Active IV .BOLUS lisinopriL [Prinivil] Med 12/17/20 13:15 Active 20 mg PO DAILY Medication Orders Sodium Chloride (Normal Saline) 500 mls @ 1,000 mls/hr IV .BOLUS ONE Stop: 12/17/20 14:00 Lisinopril (Lisinopril 20 Mg Tab) 20 mg PO DAILY [facility]OR[facility] Last Admin: 12/17/20 13:23 Dose: 20 mg Documented by: PREILOR Labs: Laboratory Tests 12/17/20 12/17/20 12/17/20 Range/Units 12:40 12:59 12:59 WBC 7.2 (4.5-11.0) K/uL RBC 6.87 H (4.30-5.90) M/uL Hgb 19.4 H* D (12.0-15.0) g/dL Hct 64.3 H (40.0-54.0) % MCV 94 (80-98) fL MCH 28 (27-31) pg MCHC 30 L (32-36) % Plt Count 186 (150-400) K/uL Puncture Site Rt radial ABG pH 7.435 (7.350-7.450) ABG pCO2 48.1 H (35.0-42.0) mmHg ABG pO2 51.6 L (75.0-100.0) mmHg ABG HCO3 31.7 H (22.0-26.0) mmol/L ABG Total CO2 25.3 (23.0-27.0) mmol/L ABG O2 Saturation 87.9 L (95.0-98.0) % ABG O2 Content 23.4 H (15.0-23.0) %vol ABG Base Excess 6.2 mm/L ABG Hemoglobin 20.6 H (13.5-18.0) g/dL ABG Oxyhemoglobin 81.0 % ABG Carboxyhemoglobin 7.2 H (0.0-1.6) % ABG Methemoglobin 0.6 % Marcus Test Passed O2 Delivery Device Room air Sodium 140 (140-148) mmol/L Potassium 4.5 (3.6-5.2) mmol/L Chloride 101 (100-108) mmol/L Carbon Dioxide 33 H (21-32) mmol/L Anion Gap 10.5 (5.0-14.0) mmol/L BUN 18 (7-18) mg/dL Creatinine 0.8 (0.8-1.3) mg/dL Est Cr Clr Drug Dosing 104.33 mL/min Estimated GFR (MDRD) > 60 (>60) Glucose 99 (74-106) mg/dL Calcium 9.1 (8.5-10.1) mg/dL Total Bilirubin 0.5 (0.2-1.0) mg/dL AST 23 (15-37) U/L ALT 64 (12-78) U/L Alkaline Phosphatase 60 (46-116) U/L Total Protein 7.3 (6.4-8.2) g/dL Albumin 3.4 (3.4-5.0) g/dL Globulin 3.9 H (2.3-3.5) g/dL Albumin/Globulin Ratio 0.9 L (1.2-2.2) Meds: Medications Generic Name Dose Route Start Last Admin Trade Name Freq PRN Reason Stop Dose Admin Sodium Chloride 500 mls @ 1,000 mls/hr 12/17/20 13:31 Normal Saline IV 12/17/20 14:00 .BOLUS ONE Lisinopril 20 mg 12/17/20 13:15 12/17/20 13:23 Lisinopril 20 Mg Tab PO 20 mg DAILY DELORES Administration Discontinued Medications Generic Name Dose Route Start Last Admin Trade Name Freq PRN Reason Stop Dose Admin Albuterol 2.5 mg 12/17/20 13:23 12/17/20 13:29 Albuterol 0.083% 2.5 Mg/3 Ml Neb Soln NEB 12/17/20 13:24 2.5 mg ONETIME ONE Administration Aspirin 324 mg 12/17/20 13:04 12/17/20 13:23 Aspirin 81 Mg Tab.Chew PO 12/17/20 13:05 324 mg ONETIME ONE Administration Diltiazem HCl 180 mg 12/17/20 13:08 Diltiazem 180 Mg Cap.Cd PO 12/17/20 13:09 ONETIME ONE Hydrochlorothiazide 25 mg 12/17/20 13:12 12/17/20 13:28 Hydrochlorothiazide 25 Mg Tab PO 12/17/20 13:13 25 mg ONETIME ONE Administration Nicotine 21 mg 12/17/20 12:39 12/17/20 12:48 Nicotine 21 Mg/24 Hr Patch TRDERM 12/17/20 12:40 21 mg ONETIME ONE Administration Departure - Departure Time of Disposition: 14:15 Disposition: Home, Self-Care 01 Condition: Fair Clinical Impression: Polycythemia, Hypoxia, HTN, goal below 130/80, Tobacco abuse disorder Sleep apnea Qualifiers: Sleep apnea type: obstructive Qualified Code(s): G47.33 - Obstructive sleep apnea (adult) (pediatric) Clinical Impression: (Ruled Out): Tobacco consumption - Discharge Information *PRESCRIPTION DRUG MONITORING PROGRAM REVIEWED*: Not Applicable *COPY OF PRESCRIPTION DRUG MONITORING REPORT IN PATIENT ADAMA: Not Applicable Prescriptions: Lisinopril/Hydrochlorothiazide [Lisinopril-Hctz 20-12.5 mg Tab] 1 each PO DAILY #30 tablet Nicotine [Nicotine Patch] 21 mg TD DAILY #14 patch Instructions: Living With Sleep Apnea, Health Risks of Smoking Referrals: Celso Chapin [employer] WRITER [Primary Care Provider] - Forms: ED Department Discharge Additional Instructions: Take the lisinopril every morning to reduce your BP. Use the nicotine patch as directed to help you quit smoking. Take a baby aspirin tablet daily with a meal to reduce your risk of stroke. Take today's lab results to your doctor and schedule an appt to be seen piero to discuss getting started on oxygen and about your other medical problems including: Sleep apnea hypertension polycythemia(red blood cell count too high) leg swelling tobacco use Excess weight Sepsis Event Note (ED) - Evaluation Sepsis Screening Result: No Definite Risk - Focused Exam Vital Signs: Vital Signs Temp Pulse Resp BP BP Pulse Ox 12/17/20 13:23 167/100 H 12/17/20 13:22 17 L 17 175/102 H 78 L 12/17/20 12:41 36.8 C 108 H 15 167/100 H 80 L 12/17/20 12:39 36.8 C 108 H 15 167/100 H 80 L - My Orders Last 24 Hours: My Active Orders 12/17/20 13:15 lisinopriL [Prinivil] 20 mg PO DAILY 12/17/20 13:23 RT Aerosol Therapy [RC] ASDIRECTED 12/17/20 13:31 Sodium Chloride 0.9% [Normal Saline] 500 ml IV .BOLUS - Assessment/Plan Last 24 Hours: My Active Orders 12/17/20 13:15 lisinopriL [Prinivil] 20 mg PO DAILY 12/17/20 13:23 RT Aerosol Therapy [RC] ASDIRECTED 12/17/20 13:31 Sodium Chloride 0.9% [Normal Saline] 500 ml IV .BOLUS
[2020-12-17] MEDS ORDERED: Lisinopril 20 MG Tab PO SCH (13:15)
[2020-12-17] MEDS ORDERED: Albuterol 0.083% 2.5 MG/3 ML Neb Soln NEB ONE (13:23)
[2020-12-17] MEDS ORDERED: Sodium Chloride 0.9% 500 ML IV ONE (13:31)
== END 2020-12-17 14:21 | disposition home or self-care (01) ==
LOC: JP.ED 12:16
DX: G47.33 Obstructive sleep apnea (adult) (pediatric) (principal); R09.02 Hypoxemia; D75.1 Secondary polycythemia; R60.0 Localized edema; I10 Essential (primary) hypertension; F17.200 Nicotine dependence, unspecified, uncomplicated
CPT/HCPCS: 36600; 80053; 82803; 85027; 94640; 99283; 99284; A9270; J7040

== ENCOUNTER 2023-10-31 09:10 | Emergency (ER) | payer OTHER ==
[2023-10-31] MEDS: Lactated Ringers 1,000 ML IV SCH (10:19)
[2023-10-31 10:30] LABS: BASOPHILS PERCENT AUTO 0.9 % (0.1-1.3); EOSINOPHILS ABSOLUTE AUTO 0.09 K/uL (0.00-0.40); EOSINOPHILS PERCENT AUTO 0.8 % (0.0-5.4); HEMATOCRIT 60.2 % (38.4-49.7); IMMATURE GRAN ABSOLUTE AUTO 0.14 K/uL (0.00-0.23); IMMATURE GRAN PERCENT AUTO 1.2 % (0.0-0.7); LYMPHOCYTES ABSOLUTE AUTO 0.53 K/uL (0.8-3.3); LYMPHOCYTES PERCENT AUTO 4.5 % (11.4-47.7); MEAN CORPUSCULAR HEMOGLOBIN 27.5 pg (31.6-35.5); MEAN CORPUSCULAR HGB CONC 32.1 g/dL (31.6-35.5); MEAN CORPUSCULAR VOLUME 85.8 fL (81.4-99.0); MONOCYTES ABSOLUTE AUTO 1.74 K/uL (0.20-0.90); MONOCYTES PERCENT AUTO 14.9 % (3.3-12.6); NEUTROPHILS PERCENT AUTO 77.7 % (40.0-78.1); PLATELET COUNT,PLT 154 K/uL (130-375); RED BLOOD CELL COUNT 7.02 M/uL (4.14-5.76); WHITE BLOOD CELL COUNT,WBC 11.7 K/uL (3.2-11.0)
[2023-10-31 10:35] LABS: HEMOGLOBIN 19.3 g/dL (12.9-16.9)
[2023-10-31] MEDS: Cefepime 1 GM in Sodium Chloride 0.9% 50 ML IV SCH ×2 (10:43)
[2023-10-31 10:53] LABS: A/G RATIO 0.7 (1.2-2.2); ALANINE AMINOTRANSFERASE,ALT 19 U/L (12-78); ALBUMIN 3.4 g/dL (3.4-5.0); ALKALINE PHOSPHATASE 60 U/L (46-116); ANION GAP 14.3 mmol/L (5.0-14.0); ASPARTATE AMNIOTRANSFERASE,AST 16 U/L (15-37); BILIRUBIN TOTAL 0.9 mg/dL (0.2-1.0); BLOOD UREA NITROGEN,BUN 56 mg/dL (7-18); CALCIUM 9.9 mg/dL (8.5-10.1); CARBON DIOXIDE,CO2 24 mmol/L (21-32); CHLORIDE,CL 100 mmol/L (100-108); CREATININE 1.5 mg/dL (0.8-1.3); ESTIMATED GFR 54 mL/min (>60); GLUCOSE RANDOM 103 mg/dL (74-106); POTASSIUM,K 5.3 mmol/L (3.6-5.2); SODIUM,NA 133 mmol/L (140-148)
[2023-10-31 10:58] LABS: LACTIC ACID 1.2 mmol/L (0.4-2.0)
[2023-10-31] MEDS ORDERED: Vancomycin 1 GM SDV IV SCH (11:00)
[2023-10-31] MEDS: Cefepime 1 GM Vial ONE (11:21)
[2023-10-31] MEDS: Vancomycin 2 GM in Sodium Chloride 0.9% 500 ML IV ONE (11:21)
== END 2023-10-31 13:29 | disposition home or self-care (01) ==
LOC: JP.ED 09:10
DX: L03.116 Cellulitis of left lower limb (principal); I50.9 Heart failure, unspecified; J44.9 Chronic obstructive pulmonary disease, unspecified; F17.210 Nicotine dependence, cigarettes, uncomplicated; Z79.899 Other long term (current) drug therapy; Z79.82 Long term (current) use of aspirin; Z86.16 Personal history of COVID-19; Z86.19 Personal history of other infectious and parasitic diseases; Z79.51 Long term (current) use of inhaled steroids
CPT/HCPCS: 36415; 80053; 83605; 84145; 85025; 86140; 87040; 96365; 96366; 96367; 99283; J0692; J3370; J3490; J7040; J7120

== ENCOUNTER 2024-09-29 19:48 | Inpatient (IN) | payer OTHER ==
[2024-09-29] MEDS ORDERED: Sodium Chloride 0.9% 10 ML Syringe FLUSH PRN ×2 (21:29→23:23)
[2024-09-29] MEDS: Pantoprazole 40 MG Vial IVPUSH ONE (21:40)
[2024-09-29 21:46] LABS: BASOPHILS ABSOLUTE AUTO 0.14 K/uL (0.00-0.10); BASOPHILS PERCENT AUTO 1.6 % (0.1-1.3); EOSINOPHILS ABSOLUTE AUTO 0.47 K/uL (0.00-0.40); EOSINOPHILS PERCENT AUTO 5.5 % (0.0-5.4); HEMATOCRIT 64.2 % (38.4-49.7); IMMATURE GRAN PERCENT AUTO 0.2 % (0.0-0.7); LYMPHOCYTES ABSOLUTE AUTO 1.25 K/uL (0.8-3.3); LYMPHOCYTES PERCENT AUTO 14.5 % (11.4-47.7); MEAN CORPUSCULAR HEMOGLOBIN 30.1 pg (31.6-35.5); MEAN CORPUSCULAR HGB CONC 31.8 g/dL (31.6-35.5); MEAN CORPUSCULAR VOLUME 94.7 fL (81.4-99.0); MONOCYTES ABSOLUTE AUTO 0.98 K/uL (0.20-0.90); MONOCYTES PERCENT AUTO 11.4 % (3.3-12.6); NEUTROPHILS ABSOLUTE AUTO 5.76 K/uL (1.0-7.6); NEUTROPHILS PERCENT AUTO 66.8 % (40.0-78.1); PLATELET COUNT,PLT 181 K/uL (130-375); RED BLOOD CELL COUNT 6.78 M/uL (4.14-5.76); WHITE BLOOD CELL COUNT,WBC 8.6 K/uL (3.2-11.0)
[2024-09-29 21:49] LABS: HEMOGLOBIN 20.4 g/dL (12.9-16.9); IMMATURE GRAN ABSOLUTE AUTO 0.02 K/uL (0.00-0.23)
[2024-09-29 21:57] LABS: INR 1.2; PROTHROMBIN TIME 12.7 sec (9.2-10.6)
[2024-09-29 22:01] LABS: ALANINE AMINOTRANSFERASE,ALT 23 U/L (12-78); ALBUMIN 3.7 g/dL (3.4-5.0); ALKALINE PHOSPHATASE 54 U/L (46-116); ANION GAP 6.3 mmol/L (5.0-14.0); ASPARTATE AMNIOTRANSFERASE,AST 17 U/L (15-37); BILIRUBIN TOTAL 0.4 mg/dL (0.2-1.0); BLOOD UREA NITROGEN,BUN 24 mg/dL (7-18); CALCIUM 9.1 mg/dL (8.5-10.1); CARBON DIOXIDE,CO2 32 mmol/L (21-32); CHLORIDE,CL 102 mmol/L (100-108); CREATININE 1.1 mg/dL (0.8-1.3); EST CRCL DRUG DOSING (CG) 74.66 mL/min; ESTIMATED GFR 77 mL/min (>60); GLUCOSE RANDOM 152 mg/dL (74-106); POTASSIUM,K 4.6 mmol/L (3.6-5.2); PROTEIN TOTAL,TP 7.3 g/dL (6.4-8.2); SODIUM,NA 140 mmol/L (140-148)
[2024-09-29 22:03] LABS: APPEARANCE,URINE CLEAR (CLEAR); BILIRUBIN,URINE NEGATIVE (NEGATIVE); COLOR,URINE YELLOW (YELLOW); GLUCOSE,URINE NEGATIVE (NEGATIVE); KETONES,URINE NEGATIVE (NEGATIVE); LEUKOCYTE ESTERASE,URINE NEGATIVE (NEGATIVE); NITRITE,URINE NEGATIVE (NEGATIVE); OCCULT BLOOD,URINE TRACE-INTACT (NEGATIVE); PH,URINE 5.5 (5.0-8.0); PROTEIN,URINE NEGATIVE (NEGATIVE); UROBILINOGEN,URINE 0.2 EU/dL (0.2-1.0)
[2024-09-29 22:17] LABS: AMORPHOUS SEDIMENT,URINE NOT SEEN; BACTERIA,URINE NOT SEEN; EPITHELIAL CELLS,URINE RARE; MUCUS,URINE NOT SEEN; RBC,URINE 0-5 (0-5); WBC,URINE 0-5 (0-5)
[2024-09-29] MEDS: Sodium Chloride 0.9% 1,000 ML IV ONE (22:58)
[2024-09-29] MEDS: Pantoprazole 80 MG in Sodium Chloride 0.9% 100 ML IV SCH (22:59)
[2024-09-29] MEDS ORDERED: Ondansetron 4 MG/2 ML SDV IV PRN (23:23)
[2024-09-29] MEDS ORDERED: Acetaminophen 325 MG Tab PO PRN (23:23)
[2024-09-29] MEDS ORDERED: Albuterol/Ipratropium 3.0-0.5 MG/3 ML Neb Soln NEB PRN (23:23)
[2024-09-30] MEDS: Sodium Chloride 0.9% 1,000 ML IV SCH ×2 (00:56→23:40)
[2024-09-30 06:02] LABS: HEMATOCRIT 61.8 % (38.4-49.7); MEAN CORPUSCULAR HGB CONC 31.2 g/dL (31.6-35.5); RED BLOOD CELL COUNT 6.44 M/uL (4.14-5.76); WHITE BLOOD CELL COUNT,WBC 7.3 K/uL (3.2-11.0)
[2024-09-30 06:10] LABS: HEMOGLOBIN 19.3 g/dL (12.9-16.9)
[2024-09-30 06:16] LABS: ANION GAP 5.7 mmol/L (5.0-14.0); CALCIUM 8.7 mg/dL (8.5-10.1); CREATININE 1.1 mg/dL (0.8-1.3); EST CRCL DRUG DOSING (CG) 74.66 mL/min; POTASSIUM,K 5.2 mmol/L (3.6-5.2)
[2024-09-30] MEDS: Formoterol/Mometasone 200-5 MCG 8.8 GM Inhaler INH SCH (08:18)
[2024-09-30] MEDS: Nicotine 21 MG/24 Hr Patch TRDERM SCH (08:25)
[2024-09-30] MEDS: Hydrochlorothiazide 12.5 MG Cap PO SCH (08:26)
[2024-09-30] MEDS: Oxybutynin 5 MG Tab PO SCH (08:27)
[2024-09-30] MEDS: Lisinopril 20 MG Tab PO SCH (08:27)
[2024-09-30] MEDS ORDERED: Non-Formulary Medication 1 Each (Oxybutynin Chloride [Oxybutynin Chloride Er] 10 MG Tab.Er PO SCH (09:00)
[2024-09-30] MEDS ORDERED: Non-Formulary Medication 1 Each (Fluticasone Propion/Salmeterol [Advair Hfa 230-21 Mcg Inh INH SCH (09:00)
[2024-09-30] MEDS ORDERED: Non-Formulary Medication 1 Each (Lisinopril/Hydrochlorothiazide [Lisinopril-Hctz 20-12.5 M PO SCH (09:00)
[2024-09-30] MEDS ORDERED: Rivaroxaban 15 MG Tab PO SCH (09:00)
[2024-09-30] MEDS: Bisacodyl 5 MG Tab PO ONE ×2 (10:35→20:04)
[2024-09-30] MEDS: Polyethylene Glycol 3350 Powder 238 GM Bot PO ONE (17:18)
[2024-09-30] MEDS: Tamsulosin 0.4 MG Cap.ER PO SCH (20:04)
[2024-10-01] MEDS ORDERED: Propofol 200 MG/20 ML SDV ONE ×2 (08:58→11:06)
[2024-10-01] MEDS ORDERED: Midazolam 1 MG/ML 2 ML SDV ONE (08:58)
[2024-10-01] MEDS ORDERED: fentaNYL 100 MCG/2 ML SDV ONE (08:58)
[2024-10-01] MEDS ORDERED: Lactated Ringers 1,000 ML ONE (11:03)
== END 2024-10-01 16:35 | disposition home or self-care (01) | DRG 378 ==
LOC: JP.ED 19:48 → JP.MS 23:20
PROVIDERS: ADMIT Nurse Practitioner; ATTEND Internal Medicine
PROC: 0DJ08ZZ Inspection of Upper Intestinal Tract, Via Natural or Artificial Opening Endoscopic (ICD-10-PCS; principal; 2024-10-01 11:30)
PROC: 0DJD8ZZ Inspection of Lower Intestinal Tract, Via Natural or Artificial Opening Endoscopic (ICD-10-PCS; 2024-10-01 11:30)
DX: K57.31 Diverticulosis of large intestine without perforation or abscess with bleeding (principal); I50.32 Chronic diastolic (congestive) heart failure; I82.402 Acute embolism and thrombosis of unspecified deep veins of left lower extremity; Z68.43 Body mass index [BMI] 50.0-59.9, adult; J44.9 Chronic obstructive pulmonary disease, unspecified; G47.30 Sleep apnea, unspecified; F15.90 Other stimulant use, unspecified, uncomplicated; E66.01 Morbid (severe) obesity due to excess calories; D45 Polycythemia vera; F17.210 Nicotine dependence, cigarettes, uncomplicated; Z79.1 Long term (current) use of non-steroidal anti-inflammatories (NSAID); Z79.51 Long term (current) use of inhaled steroids; Z79.82 Long term (current) use of aspirin; Z99.81 Dependence on supplemental oxygen; Z85.46 Personal history of malignant neoplasm of prostate; Z79.01 Long term (current) use of anticoagulants; Z79.899 Other long term (current) drug therapy; Z86.16 Personal history of COVID-19; Z90.49 Acquired absence of other specified parts of digestive tract; Z98.890 Other specified postprocedural states
CPT/HCPCS: 00813-QZ; 36415; 73562-26-LT; 73562-LT; 80048; 80053; 81001; 82272; 83735; 85018; 85025; 85027; 85610; 86850; 86900; 86901; 93971-26-LT; 93971-LT; 94640; 96374; 99222; 99232; 99238; 99284; 99284-25; A9270-GY; J2250; J2470; J2704; J3010; J7030; J7120

== ENCOUNTER 2025-01-09 09:11 | Inpatient (IN) | payer OTHER ==
[2025-01-09 09:48] LABS: BASE EXCESS VENOUS 4.0 mm/L; BICARBONATE,VENOUS 35.4 mmol/L; O2 SATURATION VENOUS 73.8; OXYHEMOGLOBIN 67.7 %; PCO2 VENOUS 79.7 mm/Hg; PH,VENOUS 7.270 (7.350-7.450); PO2 VENOUS 43.1 mm/Hg; TOTAL HEMOGLOBIN 19.7 g/dL (13.5-18.0)
[2025-01-09 09:56] LABS: BASOPHILS ABSOLUTE AUTO 0.13 K/uL (0.00-0.10); BASOPHILS PERCENT AUTO 1.6 % (0.1-1.3); EOSINOPHILS ABSOLUTE AUTO 0.12 K/uL (0.00-0.40); EOSINOPHILS PERCENT AUTO 1.5 % (0.0-5.4); IMMATURE GRAN ABSOLUTE AUTO 0.12 K/uL (0.00-0.23); IMMATURE GRAN PERCENT AUTO 1.5 % (0.0-0.7); LYMPHOCYTES ABSOLUTE AUTO 0.57 K/uL (0.8-3.3); LYMPHOCYTES PERCENT AUTO 7.1 % (11.4-47.7); MONOCYTES ABSOLUTE AUTO 1.08 K/uL (0.20-0.90); MONOCYTES PERCENT AUTO 13.5 % (3.3-12.6); NEUTROPHILS ABSOLUTE AUTO 6.00 K/uL (1.0-7.6); NEUTROPHILS PERCENT AUTO 74.8 % (40.0-78.1); PLATELET COUNT,PLT 165 K/uL (130-375); RED BLOOD CELL COUNT 6.66 M/uL (4.14-5.76); WHITE BLOOD CELL COUNT,WBC 8.0 K/uL (3.2-11.0)
[2025-01-09 10:08] LABS: INR 1.6
[2025-01-09 10:19] LABS: ALANINE AMINOTRANSFERASE,ALT 34 U/L (12-78); ASPARTATE AMNIOTRANSFERASE,AST 18 U/L (15-37); BILIRUBIN TOTAL 0.6 mg/dL (0.2-1.0); BLOOD UREA NITROGEN,BUN 30 mg/dL (7-18); CARBON DIOXIDE,CO2 33 mmol/L (21-32); CHLORIDE,CL 95 mmol/L (100-108); CREATININE 1.2 mg/dL (0.8-1.3); EST CRCL DRUG DOSING (CG) 68.44 mL/min; ESTIMATED GFR 70 mL/min (>60); GLUCOSE RANDOM 96 mg/dL (74-106); POTASSIUM,K 5.0 mmol/L (3.6-5.2); PRO B-TYPE NATRIUR PEPT,BNPPRO 274 pg/mL (5-125); PROTEIN TOTAL,TP 7.2 g/dL (6.4-8.2); SODIUM,NA 134 mmol/L (140-148)
[2025-01-09 10:22] LABS: A/G RATIO 0.9 (1.2-2.2)
[2025-01-09] MEDS ORDERED: methylPREDNISolone Sod Succ 125 MG in Dextrose 5% in Water 100 ML IV ONE (11:24)
[2025-01-09] MEDS: methylPREDNISolone Sodium Succinate 125 MG/2 ML SDV IVPUSH ONE ×2 (11:40→21:11)
[2025-01-09] MEDS: Sodium Chloride 0.9% 10 ML Syringe FLUSH PRN (11:42)
[2025-01-09] MEDS ORDERED: Iopamidol 755 Mg/ML 100 ML Bottle IV SCH ×2 (11:45→12:15)
[2025-01-09] MEDS ORDERED: Sodium Chloride 0.9% 10 ML Syringe FLUSH PRN (12:03)
[2025-01-09] MEDS ORDERED: Magnesium Hydroxide 400 MG/5 ML Susp 30 ML Cup PO PRN (15:26)
[2025-01-09] MEDS ORDERED: Ondansetron 4 MG Tab.DIS PO PRN (15:26)
[2025-01-09] MEDS ORDERED: Sennosides/Docusate Sodium 50-8.6 MG Tab PO PRN (15:26)
[2025-01-09] MEDS ORDERED: Ondansetron 4 MG/2 ML SDV IV PRN (15:26)
[2025-01-09] MEDS: Magnesium Sulfate 2 GM/50 mL 2 GM in Premix Bag 1 BAG IV SCH (15:55)
[2025-01-09] MEDS: Formoterol/Mometasone 200-5 MCG 8.8 GM Inhaler IH SCH (21:06)
[2025-01-10] MEDS: Albuterol 0.083% 2.5 MG/3 ML Neb Soln NEB PRN (01:26)
[2025-01-10 01:41] LABS: BASE EXCESS ARTERIAL 4.7 mm/L; BICARBONATE,ARTERIAL 37.9 mmol/L (22.0-26.0); O2 SATURATION ARTERIAL 87.7 % (95.0-98.0); OXYHEMOGLOBIN 83.1 %; PO2 ARTERIAL 60.5 mmHg (75.0-100.0); TOTAL HEMOGLOBIN 19.6 g/dL (13.5-18.0)
[2025-01-10 01:43] LABS: PCO2 ARTERIAL 92.0 mmHg (35.0-42.0)
[2025-01-10 05:53] LABS: PLATELET COUNT,PLT 176.0 K/uL (130-375); RED BLOOD CELL COUNT 6.53 M/uL (4.14-5.76); WHITE BLOOD CELL COUNT,WBC 7.6 K/uL (3.2-11.0)
[2025-01-10 06:09] LABS: BLOOD UREA NITROGEN,BUN 29.0 mg/dL (7-18); CARBON DIOXIDE,CO2 35.0 mmol/L (21-32); CHLORIDE,CL 98.0 mmol/L (100-108); CREATININE 1.1 mg/dL (0.8-1.3); EST CRCL DRUG DOSING (CG) 74.66 mL/min; ESTIMATED GFR 77.0 mL/min (>60); GLUCOSE RANDOM 140.0 mg/dL (74-106); SODIUM,NA 135.0 mmol/L (140-148)
[2025-01-10 06:10] LABS: POTASSIUM,K 5.7 mmol/L (3.6-5.2)
[2025-01-10] MEDS: Pneumococcal 20-Valent Conjug 0.5 ML Syringe IM ONE (10:28)
[2025-01-10] MEDS: Nystatin Topical Powder 15 GM Bottle TOP SCH (14:49)
[2025-01-11 00:38] LABS: BASE EXCESS ARTERIAL 3.9 mm/L; BICARBONATE,ARTERIAL 37.2 mmol/L (22.0-26.0); O2 SATURATION ARTERIAL 85.7 % (95.0-98.0); OXYHEMOGLOBIN 82.9 %; PO2 ARTERIAL 58.7 mmHg (75.0-100.0); TOTAL HEMOGLOBIN 19.2 g/dL (13.5-18.0)
[2025-01-11 00:43] LABS: PCO2 ARTERIAL 93.7 mmHg (35.0-42.0)
[2025-01-11 01:06] LABS: BLOOD UREA NITROGEN,BUN 33.0 mg/dL (7-18); CARBON DIOXIDE,CO2 36.0 mmol/L (21-32); CHLORIDE,CL 96.0 mmol/L (100-108); CREATININE 1.0 mg/dL (0.8-1.3); EST CRCL DRUG DOSING (CG) 82.13 mL/min; ESTIMATED GFR 87.0 mL/min (>60); GLUCOSE RANDOM 117.0 mg/dL (74-106); POTASSIUM,K 5.9 mmol/L (3.6-5.2); SODIUM,NA 133.0 mmol/L (140-148)
[2025-01-11 06:18] LABS: BASE EXCESS VENOUS 3.1 mm/L; BICARBONATE,VENOUS 36.1 mmol/L; O2 SATURATION VENOUS 93.7; OXYHEMOGLOBIN 89.7 %; PH,VENOUS 7.225 (7.350-7.450); PO2 VENOUS 76.1 mm/Hg; TOTAL HEMOGLOBIN 19.6 g/dL (13.5-18.0)
[2025-01-11 06:20] LABS: PCO2 VENOUS 90.5 mm/Hg
[2025-01-11 06:32] LABS: PLATELET COUNT,PLT 135.0 K/uL (130-375); RED BLOOD CELL COUNT 6.68 M/uL (4.14-5.76); WHITE BLOOD CELL COUNT,WBC 10.2 K/uL (3.2-11.0)
[2025-01-11 06:42] LABS: A/G RATIO 0.9 (1.2-2.2); ASPARTATE AMNIOTRANSFERASE,AST 21 U/L (15-37); BILIRUBIN DIRECT 0.14 mg/dL (0.0-0.2); BILIRUBIN INDIRECT 0.36; BILIRUBIN TOTAL 0.5 mg/dL (0.2-1.0); CARBON DIOXIDE,CO2 34 mmol/L (21-32); CHLORIDE,CL 98 mmol/L (100-108); PHOSPHORUS 4.9 mg/dL (2.5-4.9); POTASSIUM,K 5.5 mmol/L (3.6-5.2); PROTEIN TOTAL,TP 7.2 g/dL (6.4-8.2); SODIUM,NA 135 mmol/L (140-148)
[2025-01-11 06:53] LABS: ALANINE AMINOTRANSFERASE,ALT 44 U/L (12-78); BLOOD UREA NITROGEN,BUN 32 mg/dL (7-18); CREATININE 0.9 mg/dL (0.8-1.3); EST CRCL DRUG DOSING (CG) 91.25 mL/min; ESTIMATED GFR 98 mL/min (>60); GLUCOSE RANDOM 89 mg/dL (74-106)
[2025-01-11 08:06] LABS: BASE EXCESS ARTERIAL 4.0 mm/L; BICARBONATE,ARTERIAL 36.7 mmol/L (22.0-26.0); O2 SATURATION ARTERIAL 87.5 % (95.0-98.0); OXYHEMOGLOBIN 84.9 %; PO2 ARTERIAL 60.3 mmHg (75.0-100.0); TOTAL HEMOGLOBIN 19.5 g/dL (13.5-18.0)
[2025-01-11 08:11] LABS: PCO2 ARTERIAL 88.5 mmHg (35.0-42.0)
[2025-01-12 05:59] LABS: PLATELET COUNT,PLT 152.0 K/uL (130-375); RED BLOOD CELL COUNT 6.52 M/uL (4.14-5.76); WHITE BLOOD CELL COUNT,WBC 10.3 K/uL (3.2-11.0)
[2025-01-12 06:18] LABS: BLOOD UREA NITROGEN,BUN 27 mg/dL (7-18); CARBON DIOXIDE,CO2 39 mmol/L (21-32); CHLORIDE,CL 100 mmol/L (100-108); CREATININE 0.9 mg/dL (0.8-1.3); EST CRCL DRUG DOSING (CG) 91.25 mL/min; ESTIMATED GFR 98 mL/min (>60); GLUCOSE RANDOM 84 mg/dL (74-106); PHOSPHORUS 4.0 mg/dL (2.5-4.9); POTASSIUM,K 5.1 mmol/L (3.6-5.2); SODIUM,NA 139 mmol/L (140-148)
[2025-01-13 05:48] LABS: PLATELET COUNT,PLT 134.0 K/uL (130-375); RED BLOOD CELL COUNT 6.51 M/uL (4.14-5.76); WHITE BLOOD CELL COUNT,WBC 8.8 K/uL (3.2-11.0)
[2025-01-13 05:49] LABS: BASE EXCESS VENOUS 8.1 mm/L; BICARBONATE,VENOUS 41.6 mmol/L; O2 SATURATION VENOUS 75.0; OXYHEMOGLOBIN 73.2 %; PCO2 VENOUS 96.1 mm/Hg; PH,VENOUS 7.259 (7.350-7.450); PO2 VENOUS 46.1 mm/Hg; TOTAL HEMOGLOBIN 19.2 g/dL (13.5-18.0)
[2025-01-13 06:13] LABS: BLOOD UREA NITROGEN,BUN 28 mg/dL (7-18); CARBON DIOXIDE,CO2 40 mmol/L (21-32); CHLORIDE,CL 99 mmol/L (100-108); CREATININE 0.9 mg/dL (0.8-1.3); EST CRCL DRUG DOSING (CG) 91.25 mL/min; ESTIMATED GFR 98 mL/min (>60); GLUCOSE RANDOM 86 mg/dL (74-106); PHOSPHORUS 4.3 mg/dL (2.5-4.9); POTASSIUM,K 4.9 mmol/L (3.6-5.2); SODIUM,NA 141 mmol/L (140-148)
[2025-01-13 15:55] LABS: BASE EXCESS VENOUS 8.1 mm/L; BICARBONATE,VENOUS 38.3 mmol/L; O2 SATURATION VENOUS 77.5; OXYHEMOGLOBIN 75.5 %; PCO2 VENOUS 73.0 mm/Hg; PH,VENOUS 7.340 (7.350-7.450); PO2 VENOUS 44.4 mm/Hg; TOTAL HEMOGLOBIN 19.9 g/dL (13.5-18.0)
[2025-01-14 05:58] LABS: BASE EXCESS VENOUS 7.7 mm/L; BICARBONATE,VENOUS 41.2 mmol/L; O2 SATURATION VENOUS 78.5; OXYHEMOGLOBIN 76.1 %; PCO2 VENOUS 95.2 mm/Hg; PH,VENOUS 7.259 (7.350-7.450); PO2 VENOUS 48.9 mm/Hg; TOTAL HEMOGLOBIN 19.6 g/dL (13.5-18.0)
[2025-01-14] MEDS ORDERED: Sodium Chloride 0.9% 10 ML Syringe IV PRN (10:41)
== END 2025-01-15 13:40 | disposition home or self-care (01) | DRG 189 ==
LOC: JP.ED 09:11 → JP.MS 14:49
PROVIDERS: ADMIT Internal Medicine; ATTEND Hospitalist
PROC: 5A0935A Assistance with Respiratory Ventilation, Less than 24 Consecutive Hours, High Flow/Velocity Cannula (ICD-10-PCS; principal; 2025-01-10)
PROC: 4A133R1 Monitoring of Arterial Saturation, Peripheral, Percutaneous Approach (ICD-10-PCS; 2025-01-10)
PROC: 5A09357 Assistance with Respiratory Ventilation, Less than 24 Consecutive Hours, Continuous Positive Airway Pressure (ICD-10-PCS; 2025-01-12)
DX: J96.21 Acute and chronic respiratory failure with hypoxia (principal); J44.1 Chronic obstructive pulmonary disease with (acute) exacerbation; I50.32 Chronic diastolic (congestive) heart failure; E66.2 Morbid (severe) obesity with alveolar hypoventilation; Z68.43 Body mass index [BMI] 50.0-59.9, adult; I27.20 Pulmonary hypertension, unspecified; J96.22 Acute and chronic respiratory failure with hypercapnia; I50.9 Heart failure, unspecified; F17.210 Nicotine dependence, cigarettes, uncomplicated; D75.1 Secondary polycythemia; Z99.81 Dependence on supplemental oxygen; Z79.899 Other long term (current) drug therapy; Z85.46 Personal history of malignant neoplasm of prostate; Z86.16 Personal history of COVID-19; Z90.49 Acquired absence of other specified parts of digestive tract; Z79.52 Long term (current) use of systemic steroids; Z79.82 Long term (current) use of aspirin; Z79.01 Long term (current) use of anticoagulants; Z86.718 Personal history of other venous thrombosis and embolism
CPT/HCPCS: 36415; 36600; 71045; 71045-26; 71275; 71275-26; 80048; 80053; 80069; 80076; 82803; 83605; 83735; 83880; 85025; 85027; 85610; 86140; 93005; 94640; 94660; 94762; 96374; 99223; 99232; 99238; 99285-25; 99291; A9270-GY; J0456; J2919; J3475; J7030; J7050; J7512